=== PATIENT | female | born 1985 | race Caucasian/White ===

== ENCOUNTER 2019-01-30 13:56 | Observation (INO) | payer OTHER ==
[~2019-01-30 13:56] MED LIST: PREN1TAB33 MT
== END 2019-01-30 14:50 | disposition home or self-care (01) ==
LOC: 8 EST LDRP 13:56
PROVIDERS: ADMIT Specialist; ATTEND Specialist
DX: O36.8120 Decreased fetal movements, second trimester, not applicable or unspecified (principal); Z3A.27 27 weeks gestation of pregnancy
CPT/HCPCS: 99281; G0378